=== PATIENT | female | born 1990 | race African-American/Black ===

== ENCOUNTER 2017-04-15 18:11 | Day surgery (SDC) | payer OTHER ==
[2017-04-15 18:34] VITALS: BP 120/62; TEMP 98; BMI 21.6
[2017-04-15 19:09] LABS: Amnisure Test No Membranes Rupture (No Rupture)
--- NOTE | 2017-04-15 19:50 | PRG ---
OBSTETRICS EMERGENCY DEPARTMENT NOTE DATE OF SERVICE: 04/15/2017 TIME OF SERVICE: 193. PRESENTING COMPLAINT: Dizziness and possible rupture of membrane. HISTORY OF PRESENT ILLNESS: Ms. Rene is a 26-year-old 3, para 1, AB 1 at 36 weeks' gestati on with an SUSANA of 05/10/2017. She sees Dr. Orlando Erickson at [facility]. She reports that she was at [facility] in [place] and began to have some dizziness. She also thought that her water may have b roken. She presents to the emergency room. She denies significant contractions, headache, blurred v ision, shortness of breath. She reports an active fetus. 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 The patient had at admission 5 days post-spont aneous vaginal delivery in 2016 with pulmonary edema and moderate hypertension in 2016 at [place]. Her cardiac workup was negative and the symptomatology resolved with Lasix. She reports no other i ssues. PAST MEDICAL HISTORY: None. PAST SURGICAL HISTORY: None. ALLERGIES: Denies. MEDICATIONS: vitamins. SOCIAL HISTORY: Denies tobacco, alcohol, or drug use. FAMILY HISTORY: Noncontributory. REVIEW OF SYSTEMS: Noncontributory. PHYSICAL EXAMINATION: GENERAL: Thin black female, in no acute distress. VITAL SIGNS: Blood pressure 120/62, pulse 85, respirations 18, temperature 96. HEENT: Within normal limits. LUNGS: Clear to auscultation bilaterally. HEART: Regular rhythm. ABDOMEN: Soft and nontender with no palpable contractions. FHTs 140s. PELVIC: Vulva is without lesions. Vagina is without discharge. Cervix is 350, -2, cephalic, master fisher ior by the nurse exam. EXTREMITIES: Without clubbing, cyanosis or edema. LABORATORY STUDIES: AmniSure is negative: monitoring was carried out for more than 30 minutes , which revealed only occasional uterine irritability, no regular contractions and category I h eart rate tracing. IMPRESSION: Discomforts of . No evidence of spontaneous rupture of membranes at 36 weeks' gestation. PLAN: Discharge home. The patient to keep scheduled followup with Dr. Orlando Erickson in 2 days at [facility].
== END 2017-04-15 20:09 | disposition home or self-care (01) ==
LOC: L&D/OP 18:11
PROVIDERS: ATTEND Obstetrics & Gynecology
DX: O47.03 False labor before 37 completed weeks of gestation, third trimester (principal); O10.013 Pre-existing essential hypertension complicating pregnancy, third trimester; Z79.899 Other long term (current) drug therapy; Z3A.36 36 weeks gestation of pregnancy
CPT/HCPCS: 84112; 99283

== ENCOUNTER 2017-06-27 13:53 | Emergency (ER) | payer OTHER ==
[2017-06-27] MEDS ORDERED: Acetaminophen 500 MG TAB ONE (14:37)
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
[2017-06-27 15:19] LABS: Bilirubin Negative (Negative); Blood, Urine Negative (Negative); Clarity CLEAR (Clear); Glucose, Urine (Dipstick) Negative (Negative); Leukocyte Trace (Negative); Nitrite Negative (Negative); Protein, Urine (Dipstick) Negative (Neg-Trace); Specific Gravity, Urine 1.021 (1.002-1.036)
[2017-06-27 15:22] LABS: Bacteria/HPF None Seen HPF (None Seen); Hyaline Casts/LPF 0-3 HYALINE CAST LPF (0-3 Hyaline); Pregnancy Test - Urine (BHCG) Negative (Negative); Pregu Control Background? CLEAR/WHITE (CLR/WHITE); Pregu Control Bar Appear? YES (CONTROL BAR); RBC/HPF 0-3 HPF (0-3); Specific Gravity 1.021 (1.002-1.036); Squamous Epithelial 0-3 HPF (0-3); WBC/HPF 0-3 HPF (0-3)
== END 2017-06-27 15:34 | disposition home or self-care (01) ==
LOC: ERS 13:53
DX: M54.2 Cervicalgia (principal)
CPT/HCPCS: 72125; 81003; 81015; 81025

== ENCOUNTER 2019-09-24 13:04 | Emergency (ER) | payer OTHER, SELFPAY ==
--- NOTE | 2019-09-24 14:12 | RAD ---
RIGHT KNEE FOUR VIEW: 09/24/19 HISTORY: Pain. COMPARISON: None. FINDINGS: There is no acute fracture or malalignment, although there is a large joint effusion. Remainder of th e soft tissues are unremarkable. IMPRESSION: Relatively large joint effusion without fracture or malalignment concerning for internal derangement. MRI recommended if clinically warranted. POS: HOME
== END 2019-09-24 15:30 | disposition home or self-care (01) ==
LOC: ERS 13:04
DX: M25.461 Effusion, right knee (principal)

== ENCOUNTER 2022-03-22 08:29 | Emergency (ER) | payer SELFPAY ==
[2022-03-22 09:16] LABS: #Lymphocytes 2.1 thou/uL (1.20-3.40); #Monocytes 0.4 thou/uL (0.11-0.59); #Neutrophils 3.1 thou/uL (1.40-6.50); %Basophils 0.3 % (0.0-1.0); %Eosinophils 0.7 % (0.0-10.0); %Monocytes 6.4 % (0.0-10.0); %Neutrophils 54.6 % (42.0-75.0); Hemoglobin 13.2 g/dL (12.0-16.0); Mean Corpuscular HGB CONC 32.6 g/dL (32.0-36.0); Mean Corpuscular Hemoglobin 29.2 pg (27.0-31.0); Mean Corpuscular Volume 89.6 fl (78.0-98.0); Mean Platelet Volume 8.5 fL (7.4-10.4); Platelet Count 194 10x3/uL (130-400); RBC Distribution Width 12.6 % (11.5-14.5); White Blood Cell (WBC) Count 5.6 10x3/uL (4.8-10.8)
[2022-03-22 09:40] LABS: ALT (SGPT) 18 U/L (8-55); AST (SGOT) 14 U/L (5-34); Albumin 4.5 g/dL (3.5-5.0); Alkaline Phosphatase 60 U/L (40-110); Anion Gap 11 mmol/L (10-20); BUN (Urea Nitrogen) 10 mg/dL (7.0-18.7); Bilirubin, Total 0.3 mg/dL (0.2-1.2); Calc. Creatinine Clearance 0 mL/min (70-130); Calcium 9.6 mg/dL (7.8-10.44); Carbon Dioxide 24 mmol/L (22-29); Chloride 107 mmol/L (98-107); Estimated GFR 85; Globulin 3.2 g/dL (2.4-3.5); Glucose 108 mg/dL (70-105); Potassium 4.3 mmol/L (3.5-5.1); Protein, Total 7.7 g/dL (6.0-8.3); Sodium 138 mmol/L (136-145)
[2022-03-22 10:06] LABS: BHCG - Serum Negative (NEGATIVE); Pregs Control Background? CLEAR/WHITE (CLR/WHITE); Pregs Control Bar Appear? YES (CONTROL BAR)
[2022-03-22 10:27] LABS: Bilirubin Negative (Negative); Blood, Urine Negative (Negative); Glucose, Urine (Dipstick) Normal (Negative); Ketone, Urine Negative (Negative); Leukocyte 250 Leu/uL (Negative); Nitrite Negative (Negative); Protein, Urine (Dipstick) Negative (Neg-Trace); RBC/HPF 0-3 HPF (0-3); Specific Gravity, Urine 1.022 (1.002-1.036); Squamous Epithelial 21-50 HPF (0-3); Urobilinogen Normal mg/dL (Less than 2); WBC/HPF 0-3 HPF (0-3); pH, Urine 5.5 (5.0-9.0)
[2022-03-22 10:28] LABS: Bacteria/HPF 1+ HPF (None Seen); Clarity Cloudy (Clear)
== END 2022-03-22 12:47 | disposition home or self-care (01) ==
LOC: ERS 08:29
DX: R42 Dizziness and giddiness (principal)
CPT/HCPCS: 36415; 70450; 80053; 81003; 81015; 84703; 85025